=== PATIENT | male | born 1985 | race Caucasian/White ===

== ENCOUNTER 2023-07-14 20:19 | Emergency (ER) | payer OTHER, SELFPAY ==
[2023-07-14] VITALS (19 sets, daily range): BP systolic 119–152; BP diastolic 69–91; PULSE 79–98; RESP 12–16; TEMP 36.9; O2SAT 94–99
--- NOTE | ~2023-07-14 | XR_ITS ---
Clinical Indication: Chest pain PA and lateral views of the chest: Comparison: None Findings: The lungs are clear, without evidence of focal consolidation or pleural effusion. Cardiome diastinal silhouette is within normal limits. Bones and soft tissues are unremarkable. Impression: Normal chest. Reviewed, dictated and finalized at location . NT WORKER Impression: Normal chest.
--- NOTE | 2023-07-14 20:20 | ECG_ITS ---
Measurements Intervals [place] Rate: 88 P: 42 VT: 144 QRS: -22 QRSD: 88 T: 49 QT: 343 QTc: 416 Interpretive Statements SINUS RHYTHM DELAYED PRECORDIAL R/S TRANSITION BORDERLINE ECG NO PREVIOUS ECG AVAILABLE FOR COMPARISON Electronically Signed On 07-15-2023 9:20:57 [employer] by Sharif Ferrer D.O.
--- NOTE | 2023-07-14 20:55 | ED.CHESTPAIN ---
HPI - Chest Pain General Chief Complaint: Chest Pain Stated Complaint: chest discomfort Time Seen by Provider: 07/14/23 20:46 Source: patient Mode of arrival: ambulatory Limitations: no limitations History of Present Illness HPI narrative: Patient is a 37-year-old male who presents to ED with report of left-sided chest pain. Patient reports he first noticed the pain yesterday morning when he woke up. States the pain lasted most of the morning and resolved on its own. He notes the pain again this morning, again lasted for a few hours. He developed pain again while eating dinner today, at which point he decided to be evaluated. Patient denies current pain. Denied radiation pain to back or neck. Reported mild SOB, denied pleuritic pain. Denies lower extremity pain or swelling. Denies recent cough or cold symptoms. Denies fevers. Denies any recent heavy lifting, strenuous activity. No previous history of CAD, hypertension, hyperlipidemia, diabetes, smoking, family history of heart disease. Related Data Allergies Allergy/AdvReac Type Severity Reaction Status Date / Time No Known Allergies Allergy Verified 07/14/23 20:43 Review of Systems Review of Systems: CONSTITUTIONAL: Denies fever, chills, or sweats. ENT: Denies rhinorrhea, congestion, sore throat. CARDIOVASCULAR: See HPI RESPIRATORY: See HPI GASTROINTESTINAL: Denies abdominal pain, nausea, vomiting. MUSCULOSKELETAL: Denies back pain, extremity pain, myalgia. All systems reviewed & are unremarkable except as noted in HPI and below Exam Narrative: GENERAL: Well appearing, well-nourished, non-toxic, in no acute distress. HEAD: Normocephalic, atraumatic. RESPIRATORY: Airway patent, respirations nonlabored. Clear to auscultation bilaterally, no rales, rhonchi, wheezing. CARDIOVASCULAR: Regular rate and rhythm without murmurs, rubs, or gallops. ABDOMINAL: Soft, no significant abdominal tenderness to palpation, nondistended. Normoactive BS. MUSCULOSKELETAL: Moves all extremities. No gross deformities. No chest wall tenderness to palpation. No lower extremity edema. No calf tenderness. SKIN: Warm, dry, normal color. NEURO: A&O X3. Speech clear. Cranial nerves II-XII grossly intact. Steady gait. No ataxic movements. PSYCHIATRIC: Appropriate mood and affect. Normal interaction. Course Vital Signs Vital signs: Vital Signs Temperature 98.5 F 01/06/24 20:26 Pulse Rate 98 07/14/23 20:26 Respiratory Rate 16 07/14/23 20:26 Blood Pressure 119/81 07/14/23 20:26 Pulse Oximetry 99 07/14/23 20:26 Oxygen Delivery Room Air 07/14/23 20:26 Temperature 98.5 F 07/14/23 20:26 Pulse Rate 90 07/14/23 23:45 Respiratory Rate 16 07/14/23 23:45 Blood Pressure 126/69 07/14/23 21:46 Pulse Oximetry 96 07/14/23 23:45 Oxygen Delivery Room Air 07/14/23 20:41 MDM - Chest Pain MDM Narrative Medical decision making narrative: Patient's EKGs and labs are without significant high risk changes. EKG w/o acute ischemic changes. Troponin negative X2. Cardiac risk factors reviewed. HEART score = 0. No significant risk factors. Patient is felt likely low risk for ACS and reasonable for further risk stratification testing as an outpatient. Pain was not sudden or maximal in onset without tearing or ripping quality. No other signs or symptoms to suggest aortic dissection. A low-risk Wells criteria is noted, D-dimer WNL, PE is felt to be unlikely. No pneumonia seen on evaluation today. CXR clear. Patient is felt to be a reasonable candidate for continued evaluation as an outpatient. Discussed possibility of muscular strain, MSK pain, GERD. Patient does report he has occasional issues with acid reflux. He does not currently take medication for this. Will prescribe omeprazole. Discussed follow-up with primary care doctor for further evaluation. Given return precautions. Patient in agreement plan. Feels comfortable discharge home. Discharged in stable cond
[2023-07-14 20:57] LABS: Basophils Percent Auto 0.6 % (0.2-1.2); Eosinophils Absolute Auto 0.2 K/mm3 (0-0.3); Eosinophils Percent Auto 2.7 % (0-4.4); Hematocrit 45.7 % (42.0-52.0); Hemoglobin 15.8 g/dL (14.0-18.0); Immature Granulocyte Absolute 0.03 K/mm3 (0.00-0.031); Immature Granulocyte Percent A 0.5 % (0-0.5); Lymphocytes Absolute Auto 2.14 K/mm3 (0.9-3.2); Lymphocytes Percent Auto 32.7 % (18.3-44.2); Mean Corpuscular HGB Conc 34.6 g/dl (32-36); Mean Corpuscular Hemoglobin 30.4 pg (26-34); Mean Corpuscular Volume 88.1 fl (80-100); Mean Platelet Volume 11.8 fl (7.4-10.4); Monocytes Absolute Auto 0.6 K/mm3 (0.1-0.6); Neutrophils Absolute Auto 3.6 K/mm3 (1.3-6.7); Neutrophils Percent Auto 54.5 % (45.5-73.1); Platelet Count Result 230 k/mm3 (150-375); Red Blood Count 5.19 M/mm3 (4.6-6.20); Red Cell Distribution Width 12.7 % (11.5-14.5); White Blood Count 6.6 K/mm3 (4.5-10.0)
[2023-07-14 21:07] LABS: Alanine Aminotransferase 36 U/L (6-50); Albumin Level 4.8 g/dL (3.5-5.1); Alkaline Phosphatase 53 U/L (38-126); Anion Gap 11 mmol/L (8-16); Aspartate Amino Transferase 26 U/L (17-59); Bilirubin,Total 0.8 mg/dL (0.2-1.3); Blood Urea Nitrogen 15 mg/dL (9-20); Calcium 9.1 mg/dL (8.4-10.2); Carbon Dioxide 24 mmol/L (22-30); Chloride 104 mmol/L (98-107); Estimated CRCL calculation 76 ml/min; Estimated Glomerular Filt Rate 56; Glucose 97 mg/dL (65-110); INR 0.9; Lipase 136 U/L (23-300); Potassium 3.8 mmol/L (3.4-5.0); Sodium 139 mmol/L (137-145)
[2023-07-14 21:08] LABS: Partial Thromboplastin Time 28.3 SECONDS (22.3-36.8)
[2023-07-14 21:18] LABS: Troponin I < 0.012 ng/mL (0.000-0.034)
[2023-07-14 21:36] LABS: D Dimer < 0.27 ug/mL (<0.48)
[2023-07-14] MEDS: SODIUM CHLORIDE 0.9% IV 1,000 ML 999 ML IV CONT (21:39)
--- NOTE | 2023-07-14 23:31 | ECG_ITS ---
Measurements Intervals [place] Rate: 79 P: 49 [place]: 160 QRS: 8 QRSD: 90 T: 53 QT: 352 QTc: 404 Interpretive Statements SINUS RHYTHM BASELINE ARTIFACT- I, AVR, AVL NORMAL ECG COMPARED TO ECG 07/14/2023 20:25:05 NO SIGNIFICANT CHANGES Electronically Signed On 07-15-2023 16:04:07 [employer] by Sharif Ferrer D.O.
[2023-07-14 23:49] LABS: Troponin I < 0.012 ng/mL (0.000-0.034)
== END 2023-07-15 00:27 | disposition home or self-care (01) ==
PROVIDERS: Emergency Medicine; Emergency Provider Physician Assistant
DX: R07.89 Other chest pain (principal); R94.31 Abnormal electrocardiogram [ECG] [EKG]
CPT/HCPCS: 36415; 71046; 80053; 83690; 84484; 85025; 85380; 85610; 85730; 93005; 96360; 96361; 99284; J7030